=== PATIENT | male | born 1955 | race Hispanic/Latino ===

== ENCOUNTER 2020-12-25 20:17 | Emergency (ER) | payer OTHER ==
--- NOTE | 2020-12-25 20:58 | RAD REPORT ---
EXAM DESCRIPTION: CT - Head Brain Wo Cont - 12/25/2020 8:51 pm CLINICAL HISTORY: DIZZINESS COMPARISON: No comparisons TECHNIQUE: All CT scans are performed using dose optimization technique as appropriate and may inclu de automated exposure control or mA/KV adjustment according to patient size. FINDINGS: No intracranial hemorrhage, hydrocephalus or extra-axial fluid collection.No areas of brai n edema or evidence of midline shift. Right maxillary sinus mucosal thickening. Ethmoid air cell thickening. The calvarium is intact. IMPRESSION: No acute intracranial abnormality.
[2020-12-25 21:03] LABS: Absolute Lymphocytes (CBC) 2.3 K/uL (0.7-4.9); Basophils % 1.4 % (0-1.3); Hematocrit 40.1 % (39.6-49.0); Lymphocytes % 26.2 % (15.3-44.8); MPV 7.7 fL (7.6-11.3); RBC Red Blood Cell Count 4.79 M/uL (4.33-5.43)
[2020-12-25] MEDS ORDERED: ASPIRIN 81 MG CHEWABLE TABLET ONE (21:06)
[2020-12-25] MEDS ORDERED: METOPROLOL TAR 50 MG TAB ONE (21:06)
[2020-12-25] MEDS ORDERED: NA CHLORIDE 0.9% 500 ML ONE (21:07)
[2020-12-25] MEDS ORDERED: lisinopriL 10 MG TAB ONE (21:07)
[2020-12-25 21:10] LABS: Urine Blood Negative (Negative); Urine Glucose Negative (Negative); Urine Protein Negative (Negative); Urine pH 7.5 (5.0-7.0)
[2020-12-25 21:17] LABS: Protime INR 1.04
[2020-12-25 21:27] LABS: ALT/SGPT 25 U/L (12-78); AST/SGOT 13 U/L (15-37); Albumin 3.6 g/dL (3.4-5.0); Alkaline Phosphatase 101 U/L (45-117); BUN Blood Urea Nitrogen 21 mg/dL (7-18); Bicarbonate 26 mmol/L (21-32); Bilirubin Direct < 0.1 mg/dL (0-0.2); Bilirubin Total 0.2 mg/dL (0.2-1.0); Glucose Level 145 mg/dL (74-106); Magnesium 2.3 mg/dL (1.8-2.4); NT PRO-BNP 51 pg/mL (<125); Potassium 3.8 mmol/L (3.5-5.1); Protein, Total 6.9 g/dL (6.4-8.2); Sodium Level 142 mmol/L (136-145); Troponin (Emerg Dept Use Only) < 0.02 ng/mL (0.0-0.045)
--- NOTE | 2020-12-25 21:54 | RAD REPORT ---
EXAM DESCRIPTION: RAD - Chest Single View - 12/25/2020 9:09 pm CLINICAL HISTORY: COUGH COMPARISON: No comparisons FINDINGS: Lines: None. Lungs: Prominence of the pulmonary vasculature but no evidence of cullen pulmonary edema or consolidat donnell airspace disease . Pleural: No significant pleural effusions or pneumothorax. Cardiac: Mild cardiomegaly. Bones: No acute fractures. Other: IMPRESSION: Vascular congestion without focal airspace disease or cullen pulmonary edema.
--- NOTE | 2020-12-25 22:12 | ER ---
Nurse's Notes [facility] Name: Grabiel Goetz Age: 65 yrs Sex: Male : 1955 Arrival Date: 12/25/2020 Time: 20:21 Bed 4 Private MD: Diagnosis: Essential (primary) hypertension;Dizziness and giddiness;Acute maxillary sinusitis Presentation: 12/25 20:25 Chief complaint: Patient states: HTN, headache for 3 or 4 days, recently seen at clinic bs2 and told he has HTN, no previous diagnosis and not given any medications for it. Coronavirus screen: Vaccine status: Patient reports receiving the 2nd dose of the covid vaccine. pt has received both doses Pfizer vaccine fatigue, headache. Ebola Screen: No symptoms or risks identified at this time. Initial Sepsis Screen: Does the patient meet any 2 criteria? No. Patient's initial sepsis screen is negative. Does the patient have a suspected source of infection? No. Patient's initial sepsis screen is negative. Risk Assessment: Do you want to hurt yourself or someone else? Patient reports no desire to harm self or others. Onset of symptoms was December 25, 2020. 20:25 Method Of Arrival: EMS: [facility] bs2 20:25 Acuity: DEXTER 3 bs2 Triage Assessment: 20:28 Headache History: Denies prior headaches. General: Appears in no apparent distress. bs2 uncomfortable, obese, well groomed, well developed, well nourished, Behavior is calm, cooperative, appropriate for age. Pain: Pain currently is 3 out of 10 on a pain scale. Pain began gradually, 2-3 days ago. Pain: Also complains of no other associated symptoms. Neuro: Level of Consciousness is awake, alert, Oriented to person, place, time, situation, Appropriate for age Surgery Attendant are equal bilaterally Moves all extremities. Full function Gait is steady, Speech is normal, Facial symmetry appears normal, Pupils are PERRLA, Reports headache occipital area. Historical: - Allergies: 20:28 No Known Allergies; bs2 - Home Meds: 20:28 None [Active]; bs2 - PMHx: 20:28 None; bs2 - PSHx: 20:28 None; bs2 - Immunization history:: Adult Immunizations up to date, Client reports receiving the 2nd dose of the Covid vaccine. - Social history:: Smoking status: Patient denies any tobacco usage or history of. Patient uses alcohol, occasionally. - Family history:: not pertinent. Screenin:30 Abuse screen: Denies threats or abuse. Denies injuries from another. Nutritional bs2 screening: No deficits noted. Tuberculosis screening: No symptoms or risk factors identified. Fall Risk None identified. Assessment: 20:30 General: Appears in no apparent distress. comfortable, obese, well groomed, well bs2 developed, well nourished. Pain: Complains of pain in head Pain currently is 4 out of 10 on a pain scale. Pain began 2-3 days ago. Neuro: Reports dizziness, headache. Cardiovascular: Denies chest pain, Heart tones present Capillary refill < 3 seconds Patient's skin is warm and dry. Pulses are all present. Respiratory: Reports shortness of breath on exertion. GI: No signs and/or symptoms were reported involving the gastrointestinal system. : No signs and/or symptoms were reported regarding the genitourinary system. EENT: No signs and/or symptoms were reported regarding the EENT system. Derm: No signs and/or symptoms reported regarding the dermatologic system. Vital Signs: 20:25 BP 168 / 104 RA Sitting (auto/lg); Pulse 104 MON; Resp 20 S; Temp 98.5(O); Pulse Ox 95% bs2 on R/A; Weight 86.18 kg (R); Height 5 ft. 5 in. (165.10 cm) (R); Pain 4/10; 21:00 BP 158 / 106; Pulse 97; Resp 18; Pulse Ox 99% ; bs2 22:00 BP 133 / 97; Pulse 78; Resp 18; Temp 98.6; Pulse Ox 100% ; Pain 2/10; bs2 20:25 Body Mass Index 31.62 (86.18 kg, 165.10 cm) bs2 ED Course: 20:21 Patient arrived in ED. ankur 20:21 Lobito Ambrosio MD is Attending Physician. ankur 20:25 Shameka Ritchie, KAYCEE is Primary Nurse. bs2 20:28 Triage completed. bs2 20:28 Arm band placed on right wrist. bs2 20:30 Patient has correct armband on for positive identification. Placed in gown. Bed in low bs2 position. Call light in reach. sign painter helper on. Pulse ox on. NIBP on. Door closed. Warm blanket given. 20:30 Maintain EMS IV. Dressing intact. Good blood return noted. Site clean \T\ dry. Gauge \T\ bs 2 site: 20 ga LT forearm. 20:50 CT Head Brain wo Cont In Process Unspecified. EDMS 21:08 XRAY Chest (1 view) In Process Unspecified. EDMS 22:11 Izaiah Purcell MD is Referral Physician. [facility] 22:55 No provider procedures requiring assistance completed. IV discontinued, intact, bs2 bleeding controlled, No redness/swelling at site. Administered Medications: 20:48 Drug: Lopressor (metoprolol TARTRATE) 50 mg Route: PO; bs2 22:57 Follow up: Response: No adverse reaction; Blood pressure is lowered bs2 20:48 Drug: Lisinopril 10 mg Route: PO; bs2 22:57 Follow up: Response: No adverse reaction; Blood pressure is lowered bs2 20:48 Drug: Aspirin Chewable Tablet 324 mg Route: PO; bs2 22:57 Follow up: Response: No adverse reaction bs2 21:10 Drug: NS 0.9% 500 ml Route: IV; Rate: bolus; Site: left forearm; bs2 22:57 Follow up: IV Status: Completed infusion bs2 Outcome: 22:12 Discharge ordered by . [facility] 22:55 Discharged to home ambulatory, with family. bs2 22:55 Condition: improved 22:55 Discharge instructions given to patient, Instructed on discharge instructions, follow up and referral plans. medication usage, Demonstrated understanding of instructions, follow-up care, medications, Discharged instructions explained by aBldomero BENOIT in [place]ian Prescriptions given X 3. 22:57 Patient left the ED. bs2 Signatures: Dispatcher [employer] Lobito Azevedo MD MD cha Smith, Bridget, RN RN bs2
--- NOTE | 2020-12-25 22:12 | EDPHYS ---
Physician Documentation [facility] Name: Grabiel Goetz Age: 65 yrs Sex: Male : 1955 Arrival Date: 12/25/2020 Time: 20:21 Bed 4 Private MD: ED Physician Lobito Ambrosio HPI: 12/25 20:36 This 65 yrs old Male presents to ER via EMS with complaints of High Blood ankur Pressure, Headache. 20:36 The patient has elevated blood pressure and discovered this at home. Onset: The ankur symptoms/episode began/occurred 2 day(s) ago. Modifying factors: The symptoms are aggravated by activity, The symptoms are alleviated by remaining still. Associated signs and symptoms: Pertinent positives: dizziness, headache. Severity of symptoms: At its worst the blood pressure was mild, in the emergency department the blood pressure is unchanged. The patient has not experienced similar symptoms in the past. Historical: - Allergies: 20:28 No Known Allergies; bs2 - Home Meds: 20:28 None [Active]; bs2 - PMHx: 20:28 None; bs2 - PSHx: 20:28 None; bs2 - Immunization history:: Adult Immunizations up to date, Client reports receiving the 2nd dose of the Covid vaccine. - Social history:: Smoking status: Patient denies any tobacco usage or history of. Patient uses alcohol, occasionally. - Family history:: not pertinent. ROS: 20:36 Constitutional: Negative for fever, chills, and weight loss, Eyes: Negative for injury, ankur pain, redness, and discharge, ENT: Negative for injury, pain, and discharge, Neck: Negative for injury, pain, and swelling, Cardiovascular: Negative for chest pain, palpitations, and edema, Respiratory: Negative for shortness of breath, cough, wheezing, and pleuritic chest pain, Abdomen/GI: Negative for abdominal pain, nausea, vomiting, diarrhea, and constipation, Back: Negative for injury and pain, : Negative for injury, bleeding, discharge, and swelling, MS/Extremity: Negative for injury and deformity, Skin: Negative for injury, rash, and discoloration, Psych: Negative for depression, anxiety, suicide ideation, homicidal ideation, and hallucinations, Allergy/Immunology: Negative for hives, rash, and allergies, Endocrine: Negative for neck swelling, polydipsia, polyuria, polyphagia, and marked weight changes, Hematologic/Lymphatic: Negative for swollen nodes, abnormal bleeding, and unusual bruising. 20:36 Neuro: Positive for dizziness. Exam: 20:36 Constitutional: This is a well developed, well nourished patient who is awake, alert, ankur and in no acute distress. Head/Face: Normocephalic, atraumatic. Eyes: Pupils equal round and reactive to light, extra-ocular motions intact. Lids and lashes normal. Conjunctiva and sclera are non-icteric and not injected. Cornea within normal limits. Periorbital areas with no swelling, redness, or edema. ENT: Nares patent. No nasal discharge, no septal abnormalities noted. Tympanic membranes are normal and external auditory canals are clear. Oropharynx with no redness, swelling, or masses, exudates, or evidence of obstruction, uvula midline. Mucous membranes moist. Neck: Trachea midline, no thyromegaly or masses palpated, and no cervical lymphadenopathy. Supple, full range of motion without nuchal rigidity, or vertebral point tenderness. No Meningismus. Chest/axilla: Normal chest wall appearance and motion. Nontender with no deformity. No lesions are appreciated. Cardiovascular: Regular rate and rhythm with a normal S1 and S2. No gallops, murmurs, or rubs. Normal PMI, no JVD. No pulse deficits. Respiratory: Lungs have equal breath sounds bilaterally, clear to auscultation and percussion. No rales, rhonchi or wheezes noted. No increased work of breathing, no retractions or nasal flaring. Abdomen/GI: Soft, non-tender, with normal bowel sounds. No distension or tympany. No guarding or rebound. No evidence of tenderness throughout. Back: No spinal tenderness. No costovertebral tenderness. Full range of motion. Male : Normal genitalia with no discharge or lesions. Skin: Warm, dry with normal turgor. Normal color with no rashes, no lesions, and no evidence of cellulitis. MS/ Extremity: Pulses equal, no cyanosis. Neurovascular intact. Full, normal range of motion. Neuro: Awake and alert, GCS 15, oriented to person, place, time, and situation. Cranial nerves II-XII grossly intact. Motor strength 5/5 in all extremities. Sensory grossly intact. Cerebellar exam normal. Normal gait. Psych: Awake, alert, with orientation to person, place and time. Behavior, mood, and affect are within normal limits. 20:41 ECG was reviewed by the Attending Physician. [facility] Vital Signs: 20:25 BP 168 / 104 RA Sitting (auto/lg); Pulse 104 MON; Resp 20 S; Temp 98.5(O); Pulse Ox 95% bs2 on R/A; Weight 86.18 kg (R); Height 5 ft. 5 in. (165.10 cm) (R); Pain 4/10; 21:00 BP 158 / 106; Pulse 97; Resp 18; Pulse Ox 99% ; bs2 22:00 BP 133 / 97; Pulse 78; Resp 18; Temp 98.6; Pulse Ox 100% ; Pain 2/10; bs2 20:25 Body Mass Index 31.62 (86.18 kg, 165.10 cm) bs2 MDM: 20:21 Patient medically screened. [facility] 20:40 Differential diagnosis: hypertensive crisis, Malignant HTN. Data reviewed: vital signs, [facility] nurses notes, lab test result(s), EKG, radiologic studies, plain films. Data interpreted: personnel monitor: rate is 104 beats/min, rhythm is regular, Pulse oximetry: on room air is 95 %. Test interpretation: by ED physician or midlevel provider: ECG, plain radiologic studies. Counseling: I had a detailed discussion with the patient and/or guardian regarding: the historical points, exam findings, and any diagnostic results supporting the discharge/admit diagnosis, the presence of at least one elevated blood pressure reading (>120/80) during this emergency department visit, lab results, radiology results, the need for outpatient follow up, for definitive care, a water gas operator, a family practitioner. 12/25 20:36 Order name: Basic Metabolic Panel; Complete Time: 21:36 [facility] 12/25 20:36 Order name: CBC with Diff; Complete Time: 21:36 [facility] 12/25 20:36 Order name: LFT's; Complete Time: 21:36 [facility] 12/25 20:36 Order name: Magnesium; Complete Time: 21:36 [facility] 12/25 20:36 Order name: NT PRO-BNP; Complete Time: 21:36 [facility] 12/25 20:36 Order name: PT-INR; Complete Time: 22:10 [facility] 12/25 20:36 Order name: Troponin (emerg Dept Use Only); Complete Time: 21:36 [facility] 12/25 20:36 Order name: XRAY Chest (1 view); Complete Time: 22:10 [facility] 12/25 20:36 Order name: CT Head Brain wo Cont; Complete Time: 21:36 [facility] 12/25 20:59 Order name: SARS-COV-2 RT PCR; Complete Time: 22:10 EDTX 12/25 21:09 Order name: Urine Dipstick-Ancillary [facility] 12/25 20:36 Order name: EKG; Complete Time: 20:37 [facility] 12/25 20:36 Order name: Cardiac monitoring; Complete Time: 20:47 [facility] 12/25 20:36 Order name: EKG - Nurse/Tech; Complete Time: 20:47 [facility] 12/25 20:36 Order name: IV Saline Lock; Complete Time: 20:47 [facility] 12/25 20:36 Order name: Labs collected and sent; Complete Time: 20:48 [facility] 12/25 20:36 Order name: O2 Per Protocol; Complete Time: 20:48 [facility] 12/25 20:36 Order name: O2 Sat Monitoring; Complete Time: 20:48 [facility] 12/25 20:36 Order name: Urine Dipstick-Ancillary (obtain specimen); Complete Time: 21:10 [facility] EC:41 Rate is 99 beats/min. Rhythm is regular. QRS [place] is Normal. DE interval is normal. QRS ankur interval is normal. QT interval is normal. No Q waves. T waves are Normal. No ST changes noted. Clinical impression: NSR w/ Non-specific ST/T Changes and No evidence of ischemia. Interpreted by me. Reviewed by me. Administered Medications: 20:48 Drug: Lopressor (metoprolol TARTRATE) 50 mg Route: PO; bs2 22:57 Follow up: Response: No adverse reaction; Blood pressure is lowered bs2 20:48 Drug: Lisinopril 10 mg Route: PO; bs2 22:57 Follow up: Response: No adverse reaction; Blood pressure is lowered bs2 20:48 Drug: Aspirin Chewable Tablet 324 mg Route: PO; bs2 22:57 Follow up: Response: No adverse reaction bs2 21:10 Drug: NS 0.9% 500 ml Route: IV; Rate: bolus; Site: left forearm; bs2 22:57 Follow up: IV Status: Completed infusion bs2 Disposition Summary: 12/25/20 22:12 Discharge Ordered Location: Home ankur Problem: new ankur Symptoms: have improved ankur Condition: Stable ankur Diagnosis - Essential (primary) hypertension ankur - Dizziness and giddiness ankur - Acute maxillary sinusitis ankur Followup: ankur - With: Private Physician - When: 2 - 3 days - Reason: Recheck today's complaints, Continuance of care, Re-evaluation by your physician Followup: ankur - With: - When: 2 - 3 days - Reason: Recheck today's complaints, Continuance of care, Re-evaluation by your physician Discharge Instructions: - Discharge Summary Sheet ankur - Dizziness ankur - Hypertension, Adult ankur - Hypertension, Adult, [id number] ankur - Sinusitis, Adult ankur - Sinusitis, Adult, [id number] ankur - How to Take Your Blood Pressure, [id number] ankur - Aspirin and Your Heart ankur - Dizziness, [id number] ankur - Managing Your Hypertension ankur Forms: - Medication Reconciliation Form ankur - Thank You Letter ankur - Antibiotic Education ankur - Prescription Opioid Use ankur Prescriptions: - Toprol XL 50 mg Oral Tablet - take 1 tablet by ORAL route once daily; 20 tablet; Refills: 0, Product ankur Selection Permitted - Lisinopril 10 mg Oral Tablet - take 1 tablet by ORAL route once daily; 20 tablet; Refills: 0, Product ankur Selection Permitted - Bactrim DS 800-160 mg Oral Tablet - take 1 tablet by ORAL route every 12 hours for 10 days; 20 tablet; Refills: 0, ankur Product Selection Permitted Signatures: Dispatcher [employer] Lobito Azevedo MD MD cha Smith, Bridget, RN RN bs2 Corrections: (The following items were deleted from the chart) 20:59 20:45 CORONAVIRUS+LAB.BRZ ordered. EDTX EDMS
[2020-12-25 23:15] VITALS: BP 133/97; TEMP 98.6; O2SAT 100
--- NOTE | 2020-12-26 16:08 | EKG ---
Test Date: 2020-12-25 Test Time: 20:30:01 Activity Leader: DERRELL MEASUREMENT RESULTS: Intervals: Rate: 99 [place]: 188 QRSD: 106 QT: 352 QTc: 451 [place]: P: 36 [place]: 188 QRS: 43 T: 26 INTERPRETIVE STATEMENTS: Sinus rhythm with occasional premature ventricular complexes Otherwise normal ECG Compared to ECG 09/18/2004 08:15:00 Ventricular premature complex(es) now present Myocardial infarct finding no longer present Electronically Signed On 12-26-20 16:07:07 CDT by Izaiah Purcell
== END 2020-12-25 22:57 | disposition home or self-care (01) ==
LOC: ER 20:17
DX: I10 Essential (primary) hypertension (principal); J01.00 Acute maxillary sinusitis, unspecified; Z20.822 Contact with and (suspected) exposure to COVID-19
CPT/HCPCS: 96361; 93005; 85025; 80048; 36415; 83735; 85610; 80076; 81003; 84484; 83880; 70450; 71045; 96360; 99284; U0003; J7040

== ENCOUNTER 2021-01-01 15:05 | Observation (INO) | payer OTHER ==
[2021-01-01] MEDS ORDERED: NA CHLORIDE 0.9% 1,000 ML ONE (15:45)
[2021-01-01 15:53] LABS: Absolute Lymphocytes (CBC) 1.5 K/uL (0.7-4.9); Basophils % 0.6 % (0-1.3); Hematocrit 47.8 % (39.6-49.0); Lymphocytes % 15.3 % (15.3-44.8); MPV 7.9 fL (7.6-11.3); RBC Red Blood Cell Count 5.64 M/uL (4.33-5.43)
[2021-01-01 15:59] LABS: Protime INR 1.12
--- NOTE | 2021-01-01 16:06 | RAD REPORT ---
EXAM DESCRIPTION: RAD - Chest Single View - 01/01/2021 4:01 pm CLINICAL HISTORY: COUGH Chest pain. COMPARISON: Chest Single View dated 12/25/2020 FINDINGS: Portable technique limits examination quality. The lungs are grossly clear. The heart is upper limit of normal in size. No displaced fractures. IMPRESSION: No acute intrathoracic process suspected.
[2021-01-01 16:08] LABS: ALT/SGPT 24 U/L (12-78); AST/SGOT 13 U/L (15-37); Albumin 4.3 g/dL (3.4-5.0); Alkaline Phosphatase 104 U/L (45-117); BUN Blood Urea Nitrogen 16 mg/dL (7-18); Bicarbonate 25 mmol/L (21-32); Bilirubin Direct 0.1 mg/dL (0-0.2); Bilirubin Total 0.4 mg/dL (0.2-1.0); CKMB Creatine Kinase MB 1.1 ng/mL (1.0-3.6); Creatine Phosphokinase 65 U/L (39-308); Glucose Level 95 mg/dL (74-106); Lipase 90 U/L (73-393); Magnesium 2.5 mg/dL (1.8-2.4); Potassium 4.3 mmol/L (3.5-5.1); Sodium Level 138 mmol/L (136-145); Troponin (Emerg Dept Use Only) < 0.02 ng/mL (0.0-0.045)
[2021-01-01 16:10] LABS: NT PRO-BNP 39 pg/mL (<125)
[2021-01-01 16:12] LABS: C-Reactive Protein < 2.90 mg/L (<3.00)
--- NOTE | 2021-01-01 16:57 | RAD REPORT ---
EXAM DESCRIPTION: CT - Head Brain Wo Cont - 01/01/2021 4:34 pm CLINICAL HISTORY: DIZZINESS Headache, drowsiness COMPARISON: Head Brain Wo Cont dated 12/25/2020 TECHNIQUE: All CT scans are performed using dose optimization technique as appropriate and may inclu de automated exposure control or mA/KV adjustment according to patient size. FINDINGS: No intracranial hemorrhage, hydrocephalus or extra-axial fluid collection.No areas of brai n edema or evidence of midline shift. Mild mucosal thickening of the maxillary antra, greater on the right. The calvarium is intact. IMPRESSION: No acute intracranial abnormality.
[2021-01-01 18:35] LABS: Urine Blood Trace-lysed (Negative); Urine Glucose Negative (Negative); Urine Protein Negative (Negative); Urine Specific Gravity >=1.030 (1.005-1.030); Urine pH 5.5 (5.0-7.0)
--- NOTE | 2021-01-01 19:14 | ER ---
Nurse's Notes [facility] Name: Grabiel Goetz Age: 65 yrs Sex: Male : 1955 Arrival Date: 01/01/2021 Time: 15:06 Bed 15 Private MD: Diagnosis: Essential (primary) hypertension;Dyspnea;Syncope Near Presentation: 01/01 15:18 Chief complaint: Patient states: I was here recently on 12/22/20, the medications I ld1 received have been making me feel worse. Coronavirus screen: At this time, the client does not indicate any symptoms associated with coronavirus-19. Ebola Screen: No symptoms or risks identified at this time. Initial Sepsis Screen: Does the patient meet any 2 criteria? No. Patient's initial sepsis screen is negative. Does the patient have a suspected source of infection? No. Patient's initial sepsis screen is negative. Risk Assessment: Do you want to hurt yourself or someone else? Patient reports no desire to harm self or others. Onset of symptoms was January 01, 2021. 15:18 Method Of Arrival: Ambulatory ld1 15:18 Acuity: DEXTER 3 ld1 Triage Assessment: 15:22 General: Appears in no apparent distress. comfortable, Behavior is calm, cooperative, ld1 appropriate for age. Pain: Complains of pain in left parietal area and right parietal area Pain does not radiate. Pain currently is 5 out of 10 on a pain scale. Quality of pain is described as throbbing, Pain began 2-3 days ago. Is continuous, Also complains of dizziness. Neuro: Level of Consciousness is awake, alert, obeys commands, Oriented to person, place, time, situation, Reports dizziness. Cardiovascular: Capillary refill < 3 seconds Patient's skin is warm and dry. Respiratory: Airway is patent Respiratory effort is even, unlabored, Respiratory pattern is regular, symmetrical. GI: Abdomen is round non-distended. Historical: - Allergies: 15:22 No Known Allergies; ld1 - Home Meds: 15:22 None [Active]; ld1 - PMHx: 21:58 Hypertensive disorder; dc2 - PSHx: 15:22 None; ld1 - Immunization history:: Adult Immunizations up to date, Client reports receiving the 2nd dose of the Covid vaccine. - Social history:: Smoking status: Patient denies any tobacco usage or history of. Patient/guardian denies using alcohol. Screenin:28 Abuse screen: Denies threats or abuse. Denies injuries from another. Nutritional iw screening: No deficits noted. Tuberculosis screening: No symptoms or risk factors identified. Fall Risk IV access (20 points). Assessment: 16:00 General: Appears in no apparent distress. comfortable, Behavior is calm, cooperative. iw Pain: Denies pain. Neuro: Level of Consciousness is awake, alert, obeys commands, Oriented to person, place, time, situation, Speech is normal, Reports dizziness, headache. Cardiovascular: Capillary refill < 3 seconds in bilateral fingers Patient's skin is warm and dry. Respiratory: Respiratory effort is even, unlabored, Respiratory pattern is regular, symmetrical. Derm: Skin is intact, is healthy with good turgor. Musculoskeletal: Range of motion: intact in all extremities. 16:27 Reassessment: Patient appears in no apparent distress at this time. Patient and/or iw family updated on plan of care and expected duration. Pain level reassessed. Patient is alert, oriented x 3, equal unlabored respirations, skin warm/dry/pink. 18:42 Reassessment: Patient appears in no apparent distress at this time. Patient and/or iw family updated on plan of care and expected duration. Pain level reassessed. Patient is alert, oriented x 3, equal unlabored respirations, skin warm/dry/pink. pt states he is feeling somewhat better but still a little dizzy. 21:57 Reassessment: Attempt to call report, states Paula will be receiving patient but is in dc2 room medicating another patient . States will have her cll back. Vital Signs: 15:18 BP 152 / 97; Pulse 91; Resp 18; Temp 98.4(TE); Pulse Ox 97% on R/A; Weight 86.18 kg; ld1 Height 5 ft. 5 in. (165.10 cm); Pain 5/10; 18:36 BP 120 / 78; Pulse 72; Resp 18; Temp 98.2(O); Pulse Ox 98% on R/A; mh5 20:00 BP 135 / 76; Pulse 85; Resp 18; Pulse Ox 96% on R/A; Pain 0/10; dc2 21:00 BP 141 / 85; Pulse 88; Resp 18; Temp 97.8(O); Pulse Ox 95% on R/A; Pain 0/10; dc2 15:18 Body Mass Index 31.62 (86.18 kg, 165.10 cm) ld1 ED Course: 15:06 Patient arrived in ED. am2 15:20 Triage completed. ld1 15:22 Arm band placed on right wrist. EKG completed in triage. Results shown to MD. ld1 15:25 Brunilda Clemons, RN is Primary Nurse. iw 15:29 Lobito Ambrosio MD is Attending Physician. [facility] 15:40 Initial lab(s) drawn, by mn, sent to lab. Inserted saline lock: 20 gauge in left mh5 antecubital area, using aseptic technique. Blood collected. 16:00 XRAY Chest (1 view) In Process Unspecified. EDMS 16:34 CT Head Brain wo Cont In Process Unspecified. EDMS 17:02 COVID-19 SARS RT PCR (Document "Date of Onset" if Symptomatic) Sent. iw 18:28 SARS-COV-2 RT PCR (Document "Date of Onset" if Symptomatic) Sent. 5 18:35 Urine Dipstick-Ancillary Sent. 5 18:36 Urine collected: clean catch specimen, clear. 5 18:40 Patient has correct armband on for positive identification. Placed in gown. Call light mh5 in reach. Side rails up X 1. Warm blanket given. Pillow given. ekg monitor on. Pulse ox on. NIBP on. 19:12 Maxwell Call MD is Hospitalizing Provider. [facility] 19:15 Primary Nurse role handed off by Brunilda Clemons, RN mw2 19:17 Brunilda Clemons, RN is Primary Nurse. iw 19:[address] iw 19:30 CT Chest For PE Angio Sent. iw 19:41 CT Chest For PE Angio In Process Unspecified. EDMS 19:[address] Patient moved back from CT. iw 20:00 No apparent distress. Awaiting bed assignment. dc2 21:00 No apparent distress. Resting quietly. Awaiting bed assignment. dc2 21:06 Patient admitted, IV remains in place. dc2 21:06 No provider procedures requiring assistance completed. dc2 Administered Medications: 22:08 Discontinued: NS 0.9% 1000 ml IV at 125 ml/hr continuous dc2 17:20 Drug: NS 0.9% 500 ml Route: IV; Rate: bolus; Site: left antecubital; iw 18:00 Drug: NS 0.9% 1000 ml Route: IV; Rate: 125 ml/hr; Site: left antecubital; iw 19:25 Drug: Pepcid (famotidine) 20 mg Route: IVP; Infused Over: 2 mins; Site: left iw antecubital; 20:37 Follow up: Response: No adverse reaction dc2 19:28 Drug: Lovenox (enoxaparin) 1 mg/kg Route: Sub-Q; Site: left lower abdomen; iw 20:37 Follow up: Response: No adverse reaction dc2 Outcome: 19:13 Decision to Hospitalize by Provider. ankur 22:06 Admitted to Tele accompanied by tech, via wheelchair, room 221, with chart, Report dc2 called to KAYCEE Mitchell 22:06 Condition: stable 22:08 Patient left the ED. dc2 Signatures: Dispatcher [employer] Lobito Azevedo MD MD cha Williams, Irene, RN RN Manju Solo 5 Asuncion Baird 2 Aldo Acosta 2 Chante Luke RN RN ld1 Aurea Kendrick RN RN dc2 Corrections: (The following items were deleted from the chart) 15:25 15:18 Pulse 91bpm; Resp 18bpm; Pulse Ox 97% RA; Temp 98.4F Temporal; 86.18 kg; Height 5 ld1 ft. 5 in.; BMI: 31.6; Pain 5/10; ld1 21:59 15:22 PMHx: None; ld1 dc2
--- NOTE | 2021-01-01 19:14 | EDPHYS ---
Physician Documentation [facility] Name: Grabiel Goetz Age: 65 yrs Sex: Male : 1955 Arrival Date: 01/01/2021 Time: 15:06 Bed 15 Private MD: ED Physician Lobito Ambrosio HPI: 01/01 19:09 This 65 yrs old Male presents to ER via Ambulatory with complaints of Near ankur Syncope, High Blood Pressure. 19:09 The patient has experienced near-syncope. ankur Historical: - Allergies: 15:22 No Known Allergies; ld1 - Home Meds: 15:22 None [Active]; ld1 - PMHx: 21:58 Hypertensive disorder; dc2 - PSHx: 15:22 None; ld1 - Immunization history:: Adult Immunizations up to date, Client reports receiving the 2nd dose of the Covid vaccine. - Social history:: Smoking status: Patient denies any tobacco usage or history of. Patient/guardian denies using alcohol. ROS: 19:10 Constitutional: Negative for fever, chills, and weight loss, Eyes: Negative for injury, ankur pain, redness, and discharge, ENT: Negative for injury, pain, and discharge, Neck: Negative for injury, pain, and swelling, Cardiovascular: Negative for chest pain, palpitations, and edema, Abdomen/GI: Negative for abdominal pain, nausea, vomiting, diarrhea, and constipation, Back: Negative for injury and pain, : Negative for injury, bleeding, discharge, and swelling, MS/Extremity: Negative for injury and deformity, Skin: Negative for injury, rash, and discoloration, Psych: Negative for depression, anxiety, suicide ideation, homicidal ideation, and hallucinations, Allergy/Immunology: Negative for hives, rash, and allergies, Endocrine: Negative for neck swelling, polydipsia, polyuria, polyphagia, and marked weight changes, Hematologic/Lymphatic: Negative for swollen nodes, abnormal bleeding, and unusual bruising. 19:10 Respiratory: Positive for shortness of breath. 19:10 Neuro: Positive for dizziness, headache. Exam: 19:10 Constitutional: This is a well developed, well nourished patient who is awake, alert, ankur and in no acute distress. Head/Face: Normocephalic, atraumatic. Eyes: Pupils equal round and reactive to light, extra-ocular motions intact. Lids and lashes normal. Conjunctiva and sclera are non-icteric and not injected. Cornea within normal limits. Periorbital areas with no swelling, redness, or edema. ENT: Nares patent. No nasal discharge, no septal abnormalities noted. Tympanic membranes are normal and external auditory canals are clear. Oropharynx with no redness, swelling, or masses, exudates, or evidence of obstruction, uvula midline. Mucous membranes moist. Neck: Trachea midline, no thyromegaly or masses palpated, and no cervical lymphadenopathy. Supple, full range of motion without nuchal rigidity, or vertebral point tenderness. No Meningismus. Chest/axilla: Normal chest wall appearance and motion. Nontender with no deformity. No lesions are appreciated. Cardiovascular: Regular rate and rhythm with a normal S1 and S2. No gallops, murmurs, or rubs. Normal PMI, no JVD. No pulse deficits. Respiratory: Lungs have equal breath sounds bilaterally, clear to auscultation and percussion. No rales, rhonchi or wheezes noted. No increased work of breathing, no retractions or nasal flaring. Abdomen/GI: Soft, non-tender, with normal bowel sounds. No distension or tympany. No guarding or rebound. No evidence of tenderness throughout. Back: No spinal tenderness. No costovertebral tenderness. Full range of motion. Male : Normal genitalia with no discharge or lesions. Skin: Warm, dry with normal turgor. Normal color with no rashes, no lesions, and no evidence of cellulitis. MS/ Extremity: Pulses equal, no cyanosis. Neurovascular intact. Full, normal range of motion. Neuro: Awake and alert, GCS 15, oriented to person, place, time, and situation. Cranial nerves II-XII grossly intact. Motor strength 5/5 in all extremities. Sensory grossly intact. Cerebellar exam normal. Normal gait. Psych: Awake, alert, with orientation to person, place and time. Behavior, mood, and affect are within normal limits. 19:10 ECG was reviewed by the Attending Physician. Vital Signs: 15:18 BP 152 / 97; Pulse 91; Resp 18; Temp 98.4(TE); Pulse Ox 97% on R/A; Weight 86.18 kg; ld1 Height 5 ft. 5 in. (165.10 cm); Pain 5/10; 18:36 BP 120 / 78; Pulse 72; Resp 18; Temp 98.2(O); Pulse Ox 98% on R/A; mh5 20:00 BP 135 / 76; Pulse 85; Resp 18; Pulse Ox 96% on R/A; Pain 0/10; dc2 21:00 BP 141 / 85; Pulse 88; Resp 18; Temp 97.8(O); Pulse Ox 95% on R/A; Pain 0/10; dc2 15:18 Body Mass Index 31.62 (86.18 kg, 165.10 cm) ld1 MDM: 15:29 Patient medically screened. ankur 19:12 Differential Diagnosis: cardiac arrhythmia, cerebrovascular accident, drug effect, ankur transient ischemic attack, vasovagal episode. Data reviewed: vital signs, nurses notes, lab test result(s), EKG, radiologic studies, CT scan, plain films. 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 Test interpretation: by ED physician or midlevel provider: ECG, plain radiologic studies. Counseling: I had a detailed discussion with the patient and/or guardian regarding: the historical points, exam findings, and any diagnostic results supporting the discharge/admit diagnosis, lab results, radiology results, the need for further work-up and treatment in the hospital. 01/01 15:24 Order name: Basic Metabolic Panel; Complete Time: 18:58 ld1 01/01 15:24 Order name: CBC with Diff; Complete Time: 18:58 ld1 01/01 15:24 Order name: CPK; Complete Time: 18:58 ld1 01/01 15:24 Order name: Ckmb; Complete Time: 18:58 ld1 01/01 15:24 Order name: Hepatic Function; Complete Time: 18:58 ld1 01/01 15:24 Order name: Lipase; Complete Time: 18:58 ld1 01/01 15:24 Order name: Magnesium; Complete Time: 18:58 ld1 01/01 15:24 Order name: Protime (+inr); Complete Time: 18:58 ld1 01/01 15:24 Order name: Ptt, Activated; Complete Time: 18:58 ld1 01/01 15:24 Order name: Troponin (emerg Dept Use Only); Complete Time: 18:58 ld1 01/01 15:30 Order name: NT PRO-BNP; Complete Time: 18:58 [facility] 01/01 15:30 Order name: Sed Rate; Complete Time: 18:58 [facility] 01/01 15:30 Order name: CRP; Complete Time: 18:58 [facility] 01/01 17:02 Order name: COVID-19 SARS RT PCR (Document "Date of Onset" if Symptomatic); Complete iw Time: 18:58 01/01 15:24 Order name: EKG; Complete Time: 15:25 [facility] 01/01 15:24 Order name: Cardiac monitoring; Complete Time: 17:00 [facility] 01/01 15:24 Order name: EKG - Nurse/Tech; Complete Time: 15:24 [facility] 01/01 15:24 Order name: IV Saline Lock; Complete Time: 15:42 [facility] 01/01 15:24 Order name: Labs collected and sent; Complete Time: 15:42 [facility] 01/01 15:24 Order name: NPO; Complete Time: 17:43 [facility] 01/01 15:24 Order name: O2 Per Protocol; Complete Time: 17:43 [facility] 01/01 15:30 Order name: XRAY Chest (1 view); Complete Time: 18:58 [facility] 01/01 15:30 Order name: CT Head Brain wo Cont; Complete Time: 18:58 [facility] 01/01 17:02 Order name: SARS-COV-2 RT PCR (Document "Date of Onset" if Symptomatic) [facility] 01/01 18:35 Order name: Urine Dipstick-Ancillary; Complete Time: 18:58 [facility] 01/01 19:07 Order name: CT Chest For PE Angio; Complete Time: 19:55 [facility] 01/01 15:24 Order name: O2 Sat Monitoring; Complete Time: 17:43 [facility] 01/01 15:24 Order name: Urine Dipstick-Ancillary (obtain specimen); Complete Time: 18:28 ld1 EC:10 Rate is 89 beats/min. Rhythm is regular. QRS Mora is Normal. AK interval is normal. QRS ankur interval is normal. QT interval is normal. No Q waves. T waves are Normal. No ST changes noted. Clinical impression: Normal ECG and No evidence of ischemia. Interpreted by me. Reviewed by me. Administered Medications: 22:08 Discontinued: NS 0.9% 1000 ml IV at 125 ml/hr continuous dc2 17:20 Drug: NS 0.9% 500 ml Route: IV; Rate: bolus; Site: left antecubital; iw 18:00 Drug: NS 0.9% 1000 ml Route: IV; Rate: 125 ml/hr; Site: left antecubital; iw 19:25 Drug: Pepcid (famotidine) 20 mg Route: IVP; Infused Over: 2 mins; Site: left iw antecubital; 20:37 Follow up: Response: No adverse reaction dc2 19:28 Drug: Lovenox (enoxaparin) 1 mg/kg Route: Sub-Q; Site: left lower abdomen; iw 20:37 Follow up: Response: No adverse reaction dc2 Disposition Summary: 01/01/21 19:13 Hospitalization Ordered Hospitalization Status: Observation ankur Provider: Maxwell Call cha Location: Telemetry/MedSurg (observation) ankur Condition: Fair ankur Problem: new ankur Symptoms: have improved ankur Bed/Room Type: Standard ankur Room Assignment: 221(01/01/21 21:48) cg Diagnosis - Essential (primary) hypertension ankur - Dyspnea ankur - Syncope Near ankur Forms: - Medication Reconciliation Form ankur - SBAR form ankur Signatures: Dispatcher [employer] EDLobito Franks MD MD cha Williams, Irene, RN RN Ana Ridley RN RN Chante Luke RN RN ld1 Aurea Kendrick RN RN dc2 Corrections: (The following items were deleted from the chart) 21:48 19:13 ankur cg 21:59 15:22 PMHx: None; ld1 dc2
[2021-01-01] MEDS ORDERED: ENOXAPARIN 100 MG/ML SYR SQ ONE (19:19)
[2021-01-01] MEDS ORDERED: FAMOTIDINE 20 MG/2 ML VIAL IV ONE (19:19)
--- NOTE | 2021-01-01 19:51 | RAD REPORT ---
EXAM DESCRIPTION: CT - Chest For Pe Angio - 01/01/2021 7:40 pm CLINICAL HISTORY: Chest pain. DYSPNEA COMPARISON: No comparisons TECHNIQUE: CT angiogram of the pulmonary arteries was performed with MIP. All CT scans are performed using dose optimization technique as appropriate and may include automated exposure control or mA/KV adjustment according to patient size. FINDINGS: No evidence of pulmonary thromboembolism. No acute aortic finding demonstrated. Mild interstitial pulmonary edema. No significant pericardial or pleural fluid. No concerning bony finding. IMPRESSION: No evidence of pulmonary thromboembolism. Mild interstitial pulmonary edema.
--- NOTE | 2021-01-01 20:32 | P.HP ---
Certification for Inpatient Patient admitted to: Observation With expected LOS: <2 Midnights Patient will require the following post-hospital care: None Practitioner: I am a practitioner with admitting privileges, knowledge of patient current condition, hospital course, and medical plan of care. Services: Services provided to patient in accordance with Admission requirements found in Title 42 Section 412.3 of the Code of Federal Regulations Patient History Date of Service: 01/01/21 Reason for admission: near syncope History of Present Illness: Mr. Goetz is a 65 yo M who presents with dizziness, shortness of breath and headaches occurring multiple times a day. He says the symptoms are accompanied by vision changes and very slight chest pain. He last presented for these symptoms on 12/25/20 and was discharged with lisinopril and metoprolol. He reports he drinks ample water throughout the day. CTPE shows mild interstitial pulmonary edema. - Past Medical/Surgical History Has patient received pneumonia vaccine in the past: No Diabetic: No Past Medical History: Patient denies medical history Past Surgical History: Patient denies surgical history - Family History Family History: Reviewed- Non-Contributory - Social History Smoking Status: Never smoker Alcohol use: No CD- Drugs: No Caffeine use: No Place of Residence: Home Review of Systems 10-point ROS is otherwise unremarkable General: Unremarkable Eyes: Vision Change ENT: Unremarkable Respiratory: Shortness of Breath Cardiovascular: Chest Pain, Light Headedness Gastrointestinal: Unremarkable Genitourinary: Unremarkable Musculoskeletal: Unremarkable Integumentary: Unremarkable Neurological: Unremarkable Lymphatics: Unremarkable Physical Examination - Physical Exam General: Alert, In no apparent distress HEENT: Atraumatic, PERRLA, Mucous membr. moist/pink, EOMI, Sclerae nonicteric Neck: Supple, 2+ carotid pulse no bruit, No LAD, Without JVD or thyroid abnormality Respiratory: Clear to auscultation bilaterally, Normal air movement Cardiovascular: Regular rate/rhythm, Normal S1 S2 Gastrointestinal: Normal bowel sounds, No tenderness Musculoskeletal: No tenderness Integumentary: No rashes Neurological: Normal gait, Normal speech, Normal strength at 5/5 x4 extr, Normal tone, Normal affect Lymphatics: No axilla or inguinal lymphadenopathy - Studies Laboratory Data (last 24 hrs) 01/01/21 15:40: PT 12.9 H, INR 1.12, APTT 37.7 H 01/01/21 15:40: WBC 9.80, Hgb 15.8, Hct 47.8 D, Plt Count 365 D 01/01/21 15:40: Sodium 138, Potassium 4.3, BUN 16, Creatinine 0.93, Glucose 95, Magnesium 2.5 H, Total Bilirubin 0.4, AST 13 L, ALT 24, Alkaline Phosphatase 104, Lipase 90 Assessment and Plan - Problems (Diagnosis) (1) HTN (hypertension) Current Visit: Yes Status: Chronic Qualifiers: Hypertension type: primary hypertension Qualified Code(s): I10 - Essential (primary) hypertension (2) Near syncope Current Visit: Yes Status: Acute - Plan on tele orthostatic VS continue gentle IVF hydration, will consider ECHO in the AM trend trops, lipid, thyroid and a1c pending hydralazine PRN for BP spikes urinalysis with elizabeth pending DVT ppx Discharge Plan: Home Plan to discharge in: 24 Hours - Advance Directives Does patient have a Living Will: No Does patient have a Durable POA for Healthcare: No - Code Status/Comfort Care Code Status Assessed: Yes (full code ) Critical Care: No Time Spent Managing Pts Care (In Minutes): 70
[2021-01-01] MEDS ORDERED: ONDANSETRON 4 MG/2 ML VIAL IV PRN (22:24)
[2021-01-01] MEDS ORDERED: HYDRALAZINE HCL 20 MG/ML VIAL IV PRN (22:24)
[2021-01-01] MEDS: INSULIN -REGULAR HUMAN 50 UNIT/0.5 ML ML SQ SCH (22:24)
[2021-01-01] MEDS ORDERED: NA CHLORIDE 0.9% 1,000 ML IV SCH (22:24)
[2021-01-01] MEDS ORDERED: ACETAMINOPHEN 500 MG TAB PO PRN (22:24)
[2021-01-01 22:59] VITALS: O2SAT 98
[2021-01-01 23:09] VITALS: BMI 32.0
[2021-01-02 00:45] LABS: Urine Appearance CLEAR (Clear); Urine Bilirubin NEGATIVE (Negative); Urine Blood NEGATIVE (Negative); Urine Color YELLOW (Yellow); Urine Glucose NEGATIVE (Negative); Urine Protein NEGATIVE (Negative); Urine Specific Gravity >=1.030 (1.005-1.030); Urine Urobilinogen 0.2 mg/dL (0.2-1.0); Urine pH 5.5 (5.0-7.0)
[2021-01-02 00:48] LABS: Urine Microscopic Reflex NO UMIC
[2021-01-02 04:28] LABS: Absolute Lymphocytes (CBC) 2.7 K/uL (0.7-4.9); Basophils % 0.9 % (0-1.3); Hematocrit 42.5 % (39.6-49.0); Lymphocytes % 35.6 % (15.3-44.8); MPV 7.9 fL (7.6-11.3); RBC Red Blood Cell Count 5.03 M/uL (4.33-5.43)
[2021-01-02 04:56] LABS: ALT/SGPT 19 U/L (12-78); AST/SGOT 11 U/L (15-37); Albumin 3.3 g/dL (3.4-5.0); Alkaline Phosphatase 82 U/L (45-117); BUN Blood Urea Nitrogen 14 mg/dL (7-18); Bicarbonate 27 mmol/L (21-32); Bilirubin Total 0.4 mg/dL (0.2-1.0); Glucose Level 81 mg/dL (74-106); HDL Cholesterol 34 mg/dL (40-60); LDL Cholesterol, Calculated 153 (<130); Magnesium 2.5 mg/dL (1.8-2.4); Phosphorus 3.5 mg/dL (2.5-4.9); Potassium 4.4 mmol/L (3.5-5.1); Protein, Total 6.4 g/dL (6.4-8.2); Sodium Level 142 mmol/L (136-145)
[2021-01-02] MEDS: INSULIN -REGULAR HUMAN 50 UNIT/0.5 ML ML SQ SCH (07:30)
[2021-01-02 08:29] VITALS: BP 138/79; TEMP 97.4
[2021-01-02] MEDS ORDERED: ENOXAPARIN 40 MG/0.4 ML SQ SCH (09:00)
--- NOTE | 2021-01-02 10:04 | P.DS ---
Admission Date: 01/01/21 Discharge Date: 01/02/21 Disposition: ROUTINE DISCHARGE Reason for Admission: near syncope - Problems (1) Dizziness Status: Acute (2) Dyspnea Status: Acute (3) HTN (hypertension) Status: Chronic Qualifiers: Hypertension type: primary hypertension Qualified Code(s): I10 - Essential (primary) hypertension Brief History of Present Illness: 65 y/o man presented with dizziness, shortness of breath and headaches occurring multiple times a day. Symptoms are accompanied by vision changes and very slight chest pain. He last presented to the ED for these symptoms on 12/25/20 and was discharged with lisinopril and metoprolol for hypertension. Patient was also taking Bactrim for suspected ear infection. Patient reports fatigue and periods of shortness of breath after taking the medications and symptoms last up to 6 hrs after taking the medications. CTPE shows mild interstitial pulmonary edema, no PE. Patient hospitalized for further management. Hospital Course: Patient placed under observation, troponin trended negative. His blood pressure medications were held as patient was attributed his symptoms to them. Patient with a systolic blood pressure of 145 when he came to the ED. Patient is asymptomatic today. He was briefly hydrated with IV fluid. He denies shortness of breath. Metoprolol and lisinopril have been discontinued and replaced with amlodipine. Also changed to Bactrim to Augmentin for the right ear infection. Patient informed to find a PCP will follow his blood pressure and adjust and refill his medications. He is deemed clinically stable for discharge. Vital Signs/Physical Exam: Temp Pulse Resp BP Pulse Ox 97.4 F 60 16 138/79 98 01/02/21 08:00 01/02/21 08:00 01/02/21 08:00 01/02/21 08:00 01/02/21 08:00 General: Alert, In no apparent distress, Oriented x3 HEENT: Mucous membr. moist/pink Neck: JVD not distended Respiratory: Clear to auscultation bilaterally, Normal air movement Cardiovascular: No edema, Regular rate/rhythm, Normal S1 S2 Gastrointestinal: Soft and benign, Non-distended, No tenderness Musculoskeletal: No swelling Integumentary: No rashes Neurological: Normal speech, Normal strength at 5/5 x4 extr Laboratory Data at Discharge: WBC 7.60 K/uL (4.3-10.9) D 01/02/21 03:53 Hgb 14.1 g/dL (13.6-17.9) 01/02/21 03:53 Hct 42.5 % (39.6-49.0) 01/02/21 03:53 Plt Count 305 K/uL (152-406) 01/02/21 03:53 PT 12.9 SECONDS (9.5-12.5) H 01/01/21 15:40 INR 1.12 01/01/21 15:40 APTT 37.7 SECONDS (24.3-36.9) H 01/01/21 15:40 Sodium 142 mmol/L (136-145) 01/02/21 03:53 Potassium 4.4 mmol/L (3.5-5.1) 01/02/21 03:53 BUN 14 mg/dL (7-18) 01/02/21 03:53 Creatinine 0.75 mg/dL (0.55-1.3) 01/02/21 03:53 Glucose 81 mg/dL (74-106) 01/02/21 03:53 Phosphorus 3.5 mg/dL (2.5-4.9) 01/02/21 03:53 Magnesium 2.5 mg/dL (1.8-2.4) H 01/02/21 03:53 Total Bilirubin 0.4 mg/dL (0.2-1.0) 01/02/21 03:53 AST 11 U/L (15-37) L 01/02/21 03:53 ALT 19 U/L (12-78) 01/02/21 03:53 Alkaline Phosphatase 82 U/L (45-117) 01/02/21 03:53 Troponin I < 0.02 ng/mL (0.0-0.045) 01/02/21 03:53 Triglycerides 62 mg/dL (<150) 01/02/21 03:53 Cholesterol 199 mg/dL (<200) 01/02/21 03:53 HDL Cholesterol 34 mg/dL (40-60) L 01/02/21 03:53 Cholesterol/HDL Ratio 5.85 01/02/21 03:53 Lipase 90 U/L (73-393) 01/01/21 15:40 Home Medications: Amlodipine [Norvasc*] 10 mg PO DAILY #30 tab 01/02/21 Amox/Clavulanate [Augmentin 875-125 Tab] 1 each PO BID #10 tab 01/02/21 New Medications: Amox/Clavulanate [Augmentin 875-125 Tab] 1 each PO BID #10 tab Amlodipine [Norvasc*] 10 mg PO DAILY #30 tab Diet: AHA Activity: Ad margo Followup: NONE,NONE [Primary Care Provider] - 1-2 Weeks
--- NOTE | 2021-01-02 13:13 | EKG ---
Test Date: 2021-01-01 Test Time: 15:23:06 Teletype Installer: TING MEASUREMENT RESULTS: Intervals: Rate: 89 HI: 160 QRSD: 98 QT: 354 QTc: 430 [place]: P: 51 HI: 160 QRS: 65 T: 37 INTERPRETIVE STATEMENTS: Normal sinus rhythm Normal ECG Compared to ECG 12/25/2020 20:30:01 Ventricular premature complex(es) no longer present Electronically Signed On 01-02-21 13:10:30 CDT by Izaiah Purcell
== END 2021-01-02 10:55 | disposition home or self-care (01) ==
LOC: ER 15:05 → ERHOLD 20:16 → 2ND 22:18
PROVIDERS: ADMIT Internal Medicine; ATTEND Internal Medicine
DX: R42 Dizziness and giddiness (principal); R06.00 Dyspnea, unspecified; I10 Essential (primary) hypertension; Z20.822 Contact with and (suspected) exposure to COVID-19
CPT/HCPCS: 93005; 85025 ×2; 80048; 36415; 83735 ×2; 82550; 84100; 85610; 80061; 82947; 80076; 85730; 85652; 84443; 81003 ×2; 83036; 84484 ×3; 82553; 84439; 83690; 80053; 83880; 86140; 70450; 71275; 71045; 94760 ×2; 96372; 96374; 99285; U0003; Q9967; J1650 ×2; J7030 ×2; G0378 ×3